=== PATIENT | female | born 1975 | race Caucasian/White ===

== ENCOUNTER → 2023-10-10 | Outpatient (CLI) | payer MEDICAID, SELFPAY ==
--- OUTSIDE RECORDS SUMMARY | 2023-10-10 22:08 | XMS RPT_ITS | CCD ---
Author Name Unknown Address [address] [facility] [address] [facility] [address] [place] [address] Organization [facility] Care Team Providers Care Energy Crop Farmer Name Role Phone SHAWNA ELIZALDE Unavailable TIMMY Pizarro Unavailable Unavailable MAZIN RANGEL Unavailable UnavailSHAZIA Sigala Unavailable Unavailable TIMMY MALIK Primary Care Physician Unavailable Primary Care Provider Unavailmiquel e Unavailable Primary Care Provider UnavailNALLELY Varner Attending Unavailable GUNJAN FISHER Attending Unavailable Unavailable Primary Care Provider Unavailmiquel e JEVON CARL Consulting Unavailable GUNJAN FISHER Attending Unavailable GUNJAN FISHER Attending Unavailable GUNJAN FISHER Attending Unavailable WILLIAM, AGA Tomlinson Consulting Unavailable YVONNE HOFFMANN Consulting Unavailable GUNJAN FISHER Attending Unavailable Medications Current Medications Medication Drug Class(es) Dates Sig (Normalized) Sig (Original) acetaminophen 325 mg / oxyCODONE hydrochloride 5 mg oral tablet (1 source) Opioid Agonist Start: 11-29-2017 take 1 tablet by mouth every six hours as needed for pain Percocet 325/5 oral tablet Dose = 1 tab(s), Oral, q6h, PRN as needed for pain, # 28 tab(s), 0 Refill(s) Start Date: 11/29/17 Status: Ordered azithromycin 250 mg oral tablet (1 source) Macrolide Antimicrobial Start: 05-18-2022 End: 05-23-2022 take 2 tablets by mouth once daily, then take 1 tablet by mouth once daily azithromycin (ZITHROMAX) 250 mg tablet Take 2 tablets by mouth once daily for 1 day, THEN 1 tablet once daily for 4 days. 6 tablet 0 05/18/2022 05/23/2022 Active Completed/Discontinued Medications Medication Drug Class(es) Dates Sig (Normalized) Sig (Original) acetaminophen 500 mg / diphenhydrAMINE hydrochloride 25 mg oral tablet (14 sources) Histamine-1 Receptor Antagonist Start: 11-26-2017 diphenhydrAMINE-A cetaminophen (TYLENOL PM EXTRA STRENGTH) 25-500 mg tab Take by mouth as needed. 0 11/26/2017 Active Problems Active Problems Problem Classification Problem Date Documented Date Episodic/Chronic Anxiety disorders (1 source) Anxiety state; Translations: [Generalized anxiety disorder] Chronic Chronic obstructive pulmonary disease and bronchiectasis (1 source) Bronchitis, not specified as acute or chronic; Translations: [Sinobronchitis] Onset: 05-18-2022 Episodic Esophageal disorders (15 sources) Gastroesophageal reflux disease; Translations: [Gastro-esophageal reflux disease without esophagitis] Onset: 01-09-2022 09-27-2021 Chronic Joint disorders and dislocations; trauma-related (16 sources) Patellofemoral syndrome of left knee; Translations: [Patellofemoral disorders, left knee] Onset: 01-04-2022 Chronic Menstrual disorders (1 source) Menorrhagia 11-26-2017 Chronic Other connective tissue disease (2 sources) Impingement syndrome of right shoulder region; Translations: [Impingement syndrome of right shoulder] Onset: 07-09-2023 07-09-2023 Episodic Other connective tissue disease (1 source) Impingement syndrome of right shoulder; Translations: [Impingement syndrome of right shoulder] Onset: 07-09-2023 Episodic Other upper respiratory disease (14 sources) Allergic rhinitis; Translations: [Allergic rhinitis, unspecified] Onset: 01-09-2022 01-09-2022 Chronic Other upper respiratory infections (2 sources) Chronic sinusitis; Translations: [Chronic sinusitis, unspecified] Onset: 05-18-2022 Chronic Spondylosis; intervertebral disc disorders; other back problems (3 sources) Degeneration of cervical intervertebral disc; Translations: [Other cervical disc degeneration, unspecified cervical region] Onset: 07-09-2023 07-09-2023 Chronic Spondylosis; intervertebral disc disorders; other back problems (1 source) Low back pain 09-27-2021 Episodic Unclassified (1 source) NO SHOW Past or Other Problems Problem Classification Problem Date Documented Da te Episodic/Chronic Sprains and strains (16 sources) Strain of flexor muscle of hip; Translations: [Strain of muscle, fascia and tendon of left hip, initial encounter] Onset: 01-04-2022 Episodic Unclassified (1 source) SORE THROAT,CONGESTIO N Onset: 02-19-2022 Results Test Name Value Interpretation Reference Range Facil ity Vital Signs Date Time Vital Sign Value Performing Clinician Haily macedo 07-09-2023 12:50-0500 Body height 157.5 cm Ugnjan Phillip DO Work Phone: [facility] 07-09-2023 12:50-0500 Body weight 51.57 kg Gunjan Phillip DO Work Phone: [facility] 07-09-2023 12:50-0500 Diastolic blood pressure 76 mm[Hg] Gunjan Phillip DO Work Phone: [facility] 07-09-2023 12:50-0500 Heart rate 89 /min Gunjan Sturgis DO Work Phone: [facility] 07-09-2023 12:50-0500 Systolic blood pressure 104 mm[Hg] Gunjan Sturgis DO Work Phone: [facility] 05-18-2022 14:38-0400 Body temperature 98.71 [degF] Nallely Mena SUPERVISOR FILTER ASSEMBLY.HEALTH RECORDS TECHNOLOGY TEACHER Work Phone: [facility] 05-18-2022 14:38-0400 Body weight 50.35 kg Nallely Mena SUPERVISOR FILTER ASSEMBLY.HEALTH RECORDS TECHNOLOGY TEACHER Work Phone: [facility] 05-18-2022 14:38-0400 Diastolic blood pressure 73 mm[Hg] Nallely Mena SUPERVISOR FILTER ASSEMBLY.HEALTH RECORDS TECHNOLOGY TEACHER Work Phone: [facility] 05-18-2022 14:38-0400 Heart rate 82 /min Nallely Mena SUPERVISOR FILTER ASSEMBLY.HEALTH RECORDS TECHNOLOGY TEACHER Work Phone: [facility] 05-18-2022 14:38-0400 Respiratory rate 16 /min Nallely Mena SUPERVISOR FILTER ASSEMBLY.HEALTH RECORDS TECHNOLOGY TEACHER Work Phone: [facility] 05-18-2022 14:38-0400 SaO2% (BldA) [Mass fraction] 97 % Nallely Mena SUPERVISOR FILTER ASSEMBLY.HEALTH RECORDS TECHNOLOGY TEACHER Work Phone: [facility] 05-18-2022 14:38-0400 Systolic blood pressure 107 mm[Hg] Nallely Mena SUPERVISOR FILTER ASSEMBLY.HEALTH RECORDS TECHNOLOGY TEACHER Work Phone: [facility] 01-04-2022 14:53-0400 Body height 157.5 cm Gunjan Fisher DO Work Phone: [facility] 01-04-2022 14:53-0400 Body temperature 98.6 [degF] Gunjan Fisher DO Work Phone: [facility] 01-04-2022 14:53-0400 Body weight 50.35 kg Gunjan Fisher DO Work Phone: [facility] 01-04-2022 14:53-0400 Diastolic blood pressure 77 mm[Hg] Gunjan Fisher DO Work Phone: [facility] 01-04-2022 14:53-0400 Heart rate 73 /min Gunjan Fisher DO Work Phone: [facility] 01-04-2022 14:53-0400 Systolic blood pressure 116 mm[Hg] Gunjan Fisher DO Work Phone: [facility] Encounters Encounter Date Encounter Type Care Provider Facility Start: 07-09-2023 End: 07-09-2023 ambulatory GUNJAN FISHER Facility:[id number] Start: 07-09-2023 End: 07-09-2023 Patient encounter procedure Gunjan Fisher DO Work Phone: [facility] Procedures Date Procedure Procedure Detail Performing Clinician Start: 07-09-2023 Arthrocentesis aspir &/inj major jt/bursa w/o us Gunjan Fisher DO Work Phone: Start: 02-19-2022 STREP SCREEN (UNION) Pr ovider [facility] Start: 02-19-2022 EXPEDITED COVID19 Provi cali [facility] Start: 06-17-2013 SURGICAL PATHOLOGY, CONVERTED Jayme Faust MD Work Phone: None (qualifier value) MARKIE DIAZ MD Plan of Treatment Date Care Activity Detail Author Start: 02-10-2024 DIABETES SCREEN DIABETES SCREEN [facility] Start: 02-10-2024 Diabetes Screening Diabetes Screenin g [facility] Start: 03-29-2023 Influenza vaccination Influenza Vacc ine (#1) [facility] Start: 01-25-2023 Hepatitis B Vaccine (2 of 2 - CpG 2-dose series) Hepatitis B Vaccine (2 of 2 - CpG 2-dose series) [facility] Start: 07-29-2022 [facility] Start: 03-29-2022 Influenza vaccination [facility] Start: 07-29-2021 DEPRESSION ASSESSMENT DEPRESSION ASS ESSMENT [facility] Start: 2020 COLOGUARD (FIT-DNA) COLOGUARD (FIT-D NA) [facility] Start: 2020 Colonoscopy COLONOSCOPY [facility] Start: 2020 COLORECTAL CANCER SCREENING COLORECTAL CANCER SCREENING [facility] Start: [address] COLONOGRAPHY [facility] Start: 2020 FECAL OCCULT BLOOD FECAL OCCULT BLOO D [facility] Start: 2020 Lipid 1996 panel - S odette or Plasma Lipid Screening [facility] Start: 2020 Lipid panel Lipid Screening [facility] Start: 2020 LIPID SCREEN LIPID SCREEN [facility] Start: 2020 Screening for malign ant neoplasm of colon [facility] Start: 2020 SIGMOIDOSCOPY SIGMOIDOSCOPY [facility] Start: 2015 Mammography [facility] Start: 2015 Screening for malign ant neoplasm of breast Mammogram Screening [facility] Start: 2005 HPV TESTING HPV TESTING [facility] Start: 2005 Screening for malign ant neoplasm of cervix HPV Testing [facility] Start: 1996 PAP TESTING PAP TESTING [facility] Start: 1996 Screening for malign ant neoplasm of cervix Pap Testing [facility] Start: 1994 Urine microalbumin profile [facility] Start: 1993 HEPATITIS C SCREENING HEPATITIS C [facility] Start: 1993 Hepatitis C screening Hepatitis C [facility] Start: 1993 HIV SCREENING HIV SCREENING [facility] Start: 1993 HIV screening HIV Screening [facility] Start: 1987 Adult depression scr eening assessment DEPRESSION SCREENING [facility] Start: 1980 COVID-19 VACCINE (#1) COVID-19 VACCI NE (#1) [facility] Start: 02-28-1976 COVID-19 VACCINE (#1) COVID-19 VACCI NE (#1) [facility] Start: 1975 HEPATITIS B (1 of 3 - 3-dose series) HEPATITIS B (1 of 3 - 3-dose series) [facility] Start: 1975 Hepatitis B Vaccine (1 of 3 - 3-dose series) Hepatitis B Vaccine (1 of 3 - [facility] series[facility] Payers Date Payer Category Payer Medicaid [id number] 2021 Medicaid [facility] MEDICAID [facility] [employer] MEDICAID [id number] 2021-Present [phone] [address] [place] [address] Medicaid [id number] 2021 Medicaid [id number] 2017 Private Health Insurance [id number] Unknown [id number] Unknown [id number] Unknown [id number] Unknown [id number] Unknown [id number] Unknown [id number] Social History Date Type Detail Facility Start: 09-27-2021 End: 05-18-2022 Never smoked tobacco (finding) [facility] unknown [facility] Start: 1975 Sex Assigned At Not on file [facility] Start: 12-10-2021 End: 05-18-2022 Exposure to SARS-CoV-2 (event) Not sure [facility] Start: 01-04-2022 End: 05-18-2022 Tobacco use and exposure Smokeless tobacco non-user [facility] Start: 01-04-2022 End: 07-09-2023 Alcohol intake Lifetime non-drinker (finding) [facility] Start: 01-04-2022 History SDOH Alcohol Frequency 1 [facility] Start: 07-07-2020 End: 05-18-2022 History of Social function [facility] Start: 07-07-2020 End: 05-18-2022 Tobacco use panel [facility] Adult Depression Screening Assessment 0 [facility] Clinical Notes 12-07-2020 to 07-09-2023 Patient InstructionsGunjan Fisher, - 07/09/2023 12:46 PM ESTTelephone Encounter - Cassy Bryant - 07/05/2023 10:45 AM ESTTelephone Encounter - Cassy Bryant - 07/05/2023 10:36 AM EST Note Date & Type Note Facility 07-09-2023 Note HNO ID: [id number] Author: Gunjan Fisher DO Service: ? Author Type: Physician Type: Progress Notes Filed: 07/09/2023 1:24 PM Note Text: HPI: Poly Martinez is a 47 year old female established patient presents for a new problem with her Right Shoulder/right side of neck. ongoing pain in her right forearm the radiates up into right shoulder and neck for the past 1 month with no known injury. She does do some lifting at her work. She notes increased pain at night with sleeping activities. Patient treating with Naprosyn AND heat. She denies any significant numbness or tingling but just notes an achiness that goes from the base of the neck top of the shoulder into the shoulder then down the arm. She says a lot of her pain is mostly when she moves her shoulder overhead past 90 degrees. Patient injury previously seen by [facility] in 06/18/2023 where xray's were obtained. 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 Pain Scales: Verbal (Numeric Rating or Visual Analog Scale) Pain Level: 7 Pain Location: Shoulder-Right Description: Throbbing Duration Amount of Time: 1 Duration Units: Months Frequency: Continuous Intervention/Comfort measure: Medication, Heat (Naprosyn and heat) Current Outpatient Medications Medication Sig Dispense Refill albuterol HFA (PROVENTIL HFA, VENTOLIN HFA) 90 mcg/actuation inhaler Inhale 2 Puffs as instructed every 6 hours as needed for wheezing/shortness of breath for up to 10 days. 1 Each 0 diphenhydrAMINE-Acetaminophen (TYLENOL PM EXTRA STRENGTH) 25-500 mg tab Take by mouth as needed. ibuprofen (MOTRIN) 600 mg tablet Take 600 mg by mouth as needed. DM/p-ephed/acetaminoph/doxylam (NYQUIL ORAL) Take by mouth. (Patient not taking: Reported on 07/09/2023) diclofenac, EC, (VOLTAREN) 75 mg EC tablet Take 75 mg by mouth as needed. (Patient not taking: Reported on 05/18/2022) predniSONE (DELTASONE) 10 mg tablet 4 tablet po day x 3 days, 3 tablets po day x 3 days, 2 tablets po day x 3 days , 1 tablet po day x 3 days (Patient not taking: Reported on 05/18/2022) 30 tablet 0 No current facility-administered medications for this visit. ALLERGIES No Known Allergies HISTORIES PAST MEDICAL HISTORY Diagnosis Date DDD (degenerative disc disease), lumbar History reviewed. No pertinent surgical history. Social History Tobacco Use Smoking status: Never Smokeless tobacco: Never Vaping Use Vaping Use: Never used Substance Use Topics Alcohol use: Never Drug use: Never FAMILY HISTORY Problem Relation Age of Onset Heart Mother Heart disease Father Kidney Disease Father Gout Father Liver Disease Father Review of Systems Constitutional: Positive for chills. HENT: Negative. Eyes: Negative. Respiratory: Negative. Cardiovascular: Negative. Gastrointestinal: Positive for nausea. Musculoskeletal: Positive for joint pain, myalgias and neck pain. Skin: Negative. Neurological: Positive for headaches. Endo/Heme/Allergies: Negative. Psychiatric/Behavioral: Negative. Exam: BP 104/76 Pulse 89 Ht 157.5 cm (5' 2 ) Wt 51.6 kg (113 lb 11.2 oz) BMI 20.80 kg/m? BMI 20.80 kg/(m2) Const: Appears well developed and well nourished. No signs of acute distress present. Facial expression appears pleasant. CV: Extremities: No clubbing, cyanosis or edema. +2 distal pulses throughout Skin: No erythema, petechiae, rash. Neuro: Alert and oriented x3. Reflexes: DTRs are 2+ bilaterally. No deficits noted. Back Exam Tenderness The patient is experiencing tenderness in the cervical (Right cervical base upper shoulder). Range of Motion Extension: 80 abnormal Flexion: normal Lateral bend right: abnormal Lateral bend left: abnormal Rotation right: normal Rotation left: normal Muscle Strength Back normal muscle strength: Upper extremity myotome strength 5-5. Other Sensation: normal Gait: normal Erythema: no back redness Scars: absent Comments: Mild Spurling's on the right negative on the left. Strength upper extremities 5 out of 5. Dermatomes intact. Tenderness in between the base of the neck and upper shoulder and anterior chest. Right Shoulder Exam Tenderness Right shoulder tenderness location: Right shoulder glenohumeral joint. Range of Motion Active abduction: 100 abnormal Passive abduction: 170 abnormal Extension: abnormal External rotation: normal Forward flexion: 110 abnormal Internal rotation 0 degrees: normal Internal rotation 90 degrees: normal Muscle Strength Abduction: 3/5 Internal rotation: 4/5 External rotation: 4/5 Supraspinatus: 3/5 Subscapularis: 4/5 Biceps: 5/5 Tests Escaimlla test: positive Impingement: positive Drop arm: negative Sulcus: absent Other Erythema: absent Scars: absent Sensation: normal Pulse: present Past x-ray cervical spine showed normal cervical spine vertebral body heights are (more content not included)... [facility] 07-09-2023 Instructions Allyson Carcamo MA - 07/09/2023 1:22 PM EST Ice right shoulder/neck 4 times a day for 20 minutes. Warm moist heat before activities for 15-20 minutes. Aleve 2 pills in the morning 2 pills at night with food/Tylenol 1 to 2 tablets 325 mg every 8 hours as needed for breakthrough pain. Cortisone injection to affected right for shoulder and neck shoulder will decrease pain and improve function. Home exercises with Range of motion 2x day / Strengthening exercises once pain free ROM. Formal physical therapy for both shoulder and neck range of motion and strengthening. Avoid repetitive overhead lifting or reaching for the next few weeks. Sleep in an inclined position to avoid laying on shoulder. Reevaluate in 4.5 weeks documented in this encounter [facility] 07-09-2023 History of Presen t illness Narrative Associated Order(s): LARGE JOINT INJECTION/ARTHROCENTESIS: R shoulder joint Post-Procedure Diagnose(s): Impingement syndrome of right shoulder HPI: Poly Martinez is a 47 year old female established patient presents for a new problem with her Right Shoulder/right side of neck. ongoing pain in her right forearm the radiates up into right shoulder and neck for the past 1 month with no known injury. She does do some lifting at her work. She notes increased pain at night with sleeping activities. Patient treating with Naprosyn & heat. She denies any significant numbness or tingling but just notes an achiness that goes from the base of the neck top of the shoulder into the shoulder then down the arm. She says a lot of her pain is mostly when she moves her shoulder overhead past 90 degrees. Patient injury previously seen by [facility] in 06/18/2023 where xray's were obtained. 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 Pain Scales: Verbal (Numeric Rating or Visual Analog Scale) Pain Level: 7 Pain Location: Shoulder-Right Description: Throbbing Duration Amount of Time: 1 Duration Units: Months Frequency: Continuous Intervention/Comfort measure: Medication, Heat (Naprosyn and heat) Current Outpatient Medications Medication Sig Dispense Refill albuterol HFA (PROVENTIL HFA, VENTOLIN HFA) 90 mcg/actuation inhaler Inhale 2 Puffs as instructed every 6 hours as needed for wheezing/shortness of breath for up to 10 days. 1 Each 0 diphenhydrAMINE-Acetaminophen (TYLENOL PM EXTRA STRENGTH) 25-500 mg tab Take by mouth as needed. ibuprofen (MOTRIN) 600 mg tablet Take 600 mg by mouth as needed. DM/p-ephed/acetaminoph/doxylam (NYQUIL ORAL) Take by mouth. (Patient not taking: Reported on 07/09/2023) diclofenac, EC, (VOLTAREN) 75 mg EC tablet Take 75 mg by mouth as needed. (Patient not taking: Reported on 05/18/2022) predniSONE (DELTASONE) 10 mg tablet 4 tablet po day x 3 days, 3 tablets po day x 3 days, 2 tablets po day x 3 days , 1 tablet po day x 3 days (Patient not taking: Reported on 05/18/2022) 30 tablet 0 No current facility-administered medications for this visit. ALLERGIES No Known Allergies HISTORIES PAST MEDICAL HISTORY Diagnosis Date DDD (degenerative disc disease), lumbar History reviewed. No pertinent surgical history. Social History Tobacco Use Smoking status: Never Smokeless tobacco: Never Vaping Use Vaping Use: Never used Substance Use Topics Alcohol use: Never Drug use: Never FAMILY HISTORY Problem Relation Age of Onset Heart Mother Heart disease Father Kidney Disease Father Gout Father Liver Disease Father Review of Systems Constitutional: Positive for chills. HENT: Negative. Eyes: Negative. Respiratory: Negative. Cardiovascular: Negative. Gastrointestinal: Positive for nausea. Musculoskeletal: Positive for joint pain, myalgias and neck pain. Skin: Negative. Neurological: Positive for headaches. Endo/Heme/Allergies: Negative. Psychiatric/Behavioral: Negative. Exam: BP 104/76 Pulse 89 Ht 157.5 cm (5' 2 ) Wt 51.6 kg (113 lb 11.2 oz) BMI 20.80 kg/m BMI 20.80 kg/(m^2) Const: Appears well developed and well nourished. No signs of acute distress present. Facial expression appears pleasant. CV: Extremities: No clubbing, cyanosis or edema. +2 distal pulses throughout Skin: No erythema, petechiae, rash. Neuro: Alert and oriented x3. Reflexes: DTRs are 2+ bilaterally. No deficits noted. Back Exam Tenderness The patient is experiencing tenderness in the cervical (Right cervical base upper shoulder). Range of Motion Extension: 80 abnormal Flexion: normal Lateral bend right: abnormal Lateral bend left: abnormal Rotation right: normal Rotation left: normal Muscle Strength Back normal muscle strength: Upper extremity myotome strength 5-5. Other Sensation: normal Gait: normal Erythema: no back redness Scars: absent Comments: Mild Spurling's on the right negative on the left. Strength upper extremities 5 out of 5. Dermatomes intact. Tenderness in between the base of the neck and upper shoulder and anterior chest. Right Shoulder Exam Tenderness Right shoulder tenderness location: Right shoulder glenohumeral joint. Range of Motion Active abduction: 100 abnormal Passive abduction: 170 abnormal Extension: abnormal External rotation: normal Forward flexion: 110 abnormal Internal rotation 0 degrees: normal Internal rotation 90 degrees: normal Muscle Strength Abduction: 3/5 Internal rotation: 4/5 External rotation: 4/5 Supraspinatus: 3/5 Subscapularis: 4/5 Biceps: 5/5 Tests Escamilla test: positive Impingement: positive Drop arm: negative Sulcus: absent Other Erythema: absent Scars: absent Sensation: normal Pulse: present Past x-ray cervical spine showed normal cervical spine vertebral body heights are maintained. Cervical alignment is maintained. Mild cervical disc disease. Right shoulder humerus x-ray 06/18/2023 [facility]: Mild arthritic changes right shoulder joint no acute fracture or osseous abnormality. Mild arthritic changes to the lateral view of the elbow. Otherwise normal humerus. ASSESSMENT/PLAN: 1. Impingement syndrome of right shoulder - ICD9: 726.2, ICD10: M75.41 (primary diagnosis) LARGE JOINT INJECTION/ARTHROCENTESIS: R shoulder joint Informed Consent Consent Obtained: Verbal [place] Protocol A moment to CARE was completed. SIGN IN Personnel directly involved with the procedure wore the appropriate PPE. Special Equipment: N/A Patient/Surrogate Stated/Verified: Patient name, Date of , Relevant allergies and Intended procedure TIME OUT Intended patient and procedure match the source document(s). Consent documented and matches the intended procedure. Relevant labs, photos, and/or imaging studies have been reviewed. Correct side/site marked and visible. Medications required for procedure verified. No fire risk assessment and interventions applicable. No implant(s) inserted. 07/09/2023 1:11 PM The procedure site was prepped in the usual sterile fashion. Site: R shoulder joint Medications: 40 mg triamcinolone acetonide 40 mg/mL; 2 mg dexAMETHasone sodium phosphate 4 mg/mL Anesthetics: 2 mL lidocaine (PF) 20 mg/mL (2 %) Outcome: Tolerated well, no immediate complications Post-injection instructions were reviewed with the patient and the patient voiced understanding of these instructions. SIGN OUT No instruments, equipment or retained foreign bodies applicable. Ice right shoulder/neck 4 times a day for 20 minutes. Warm moist heat before activities for 15-20 minutes. Aleve 2 pills in the morning 2 pills at night with food/Tylenol 1 to 2 tablets 325 mg every 8 hours as needed for breakthrough pain. Cortisone injection to affected right for shoulder and neck shoulder will decrease pain and improve function. Home exercises with Range of motion 2x day / Strengthening exercises once pain free ROM. Formal physical therapy for both shoulder and neck range of motion and strengthening. Avoid repetitive overhead lifting or reaching for the next few weeks. Sleep in an inclined position to avoid laying on shoulder. Reevaluate in 4.5 weeks 2. DDD (degenerative disc disease), cervical - ICD9: 722.4, ICD10: M50.30 As above Gunjan Fisher DO The information in this document was created by the medical office assistant instructor. Edward Fisher have reviewed and approved this document for accuracy. Note: This dictation was created with the assistance of voice recognition software. Phonetic and/or minor grammatical errors may exist. documented in this encounter [facility] 07-05-2023 Miscellaneous Notes Formattin g of this note might be different from the original. SCHEDULED 07/09/2023 Cassy Bryant REPORT PUT ON DR FISHER DESK Ailin 06/18 or Right Shoulder,no injury,yxray Waiting on report to be faxed. Cassy Bryant documented in this encounter [facility] 06-04-2022 Miscellaneous Notes Formattin g of this note might be different from the original. Patient called back and I let her know we received a referral from PCP. Patient stated that she is planning on seeing a doctor up in [place] and did not wish to make an appointment with us. Marquita Easton MA We have received a referral from patients family doctor, i tried to call to schedule an appointment but i had to leave a message for patient to return our call. Will send letter. documented in this encounter [facility] 05-18-2022 Note HNO ID: [id number] Author: Nallely Mena APRN.HE[employer] RECORDS TECHNOLOGY TEACHER Service: ? Author Type: Nurse Practitioner Type: Progress Notes Filed: 05/18/2022 3:43 PM Note Text: Poly Martinez is a 46 year old female who presents with Cough (2 weeks), Chest Congestion, and Muscle Aches Patient presents for productive cough, congestion, body aches, sinus pressure x2 weeks. States her symptoms have not resolved and has been trying zvwp-nlw-bfqkwwb medications. Denies shortness of breath or fever. History reviewed. No pertinent past medical history. ACTIVE PROBLEM LIST Patellofemoral Pain Syndrome of Left Knee Hip Strain, Left, Initial Encounter Allergic Rhinitis Gastroesophageal Reflux Disease Current Outpatient Medications Medication Sig Dispense Refill DM/p-ephed/acetaminoph/doxylam (NYQUIL ORAL) Take by mouth. diphenhydrAMINE-Acetaminophen (TYLENOL PM EXTRA STRENGTH) 25-500 mg tab Take by mouth as needed. ibuprofen (MOTRIN) 600 mg tablet Take 600 mg by mouth as needed. azithromycin (ZITHROMAX) 250 mg tablet Take 2 tablets by mouth once daily for 1 day, THEN 1 tablet once daily for 4 days. 6 tablet 0 albuterol HFA (PROVENTIL HFA, VENTOLIN HFA) 90 mcg/actuation inhaler Inhale 2 Puffs as instructed every 6 hours as needed for wheezing/shortness of breath for up to 10 days. 1 Each 0 diclofenac, EC, (VOLTAREN) 75 mg EC tablet Take 75 mg by mouth as needed. (Patient not taking: Reported on 05/18/2022) predniSONE (DELTASONE) 10 mg tablet 4 tablet po day x 3 days, 3 tablets po day x 3 days, 2 tablets po day x 3 days , 1 tablet po day x 3 days (Patient not taking: Reported on 05/18/2022) 30 tablet 0 No current facility-administered medications for this visit. Social History Tobacco Use Smoking status: Never Smokeless tobacco: Never Vaping Use Vaping Use: Never used Substance Use Topics Alcohol use: Never Drug use: Never Alcohol Use: Never Tobacco Use: Never FAMILY HISTORY Problem Relation Age of Onset Heart Mother Heart disease Father Kidney Disease Father Gout Father Liver Disease Father Review of Systems HENT: Positive for congestion. Respiratory: Positive for cough and sputum production. BP 107/73 Pulse 82 Temp 98.7 Resp 16 Wt 111 lb (50.3kg) SpO2 97% Physical Exam Vitals and nursing note reviewed. Constitutional: General: She is not in acute distress. Appearance: Normal appearance. She is not ill-appearing, toxic-appearing or diaphoretic. HENT: Right Ear: Tympanic membrane normal. Left Ear: Tympanic membrane normal. Nose: Congestion present. Right Turbinates: Swollen. Left Turbinates: Swollen. Right Sinus: Frontal sinus tenderness present. Left Sinus: Frontal sinus tenderness present. Mouth/Throat: Lips: [employer]. Mouth: Mucous membranes are moist. Eyes: Extraocular Movements: Extraocular movements intact. Pupils: Pupils are equal, round, and reactive to light. Cardiovascular: Rate and Rhythm: Normal rate and regular rhythm. Pulses: Normal pulses. Heart sounds: Normal heart sounds. Pulmonary: Effort: Pulmonary effort is normal. Breath sounds: Normal breath sounds. Abdominal: General: Abdomen is flat. Bowel sounds are normal. Palpations: Abdomen is soft. Musculoskeletal: Cervical back: Normal range of motion and neck supple. Skin: General: Skin is warm and dry. Capillary Refill: Capillary refill takes less than 2 seconds. Neurological: General: No focal deficit present. Mental Status: She is alert and oriented to person, place, and time. ASSESSMENT/PLAN: 1. Sinobronchitis - ICD9: 473.9, 490, ICD10: J32.9, J40 - Will begin treatment with Zithromax pack as directed - Supportive care with plenty of fluids, rest, and analgesia prn. - Follow up in 3-5 days if symptoms persist or worsen. -Albuterol inhaler sent to pharmacy. Follow-up with primary care provider as needed. [facility] 05-18-2022 History of Presen t illness Narrative Poly Martinez is a 46 year old female who presents with Cough (2 weeks), Chest Congestion, and Muscle Aches Patient presents for productive cough, congestion, body aches, sinus pressure x2 weeks. States her symptoms have not resolved and has been trying mizn-mcg-ahdlzhw medications. Denies shortness of breath or fever. History reviewed. No pertinent past medical history. ACTIVE PROBLEM LIST Patellofemoral Pain Syndrome of Left Knee Hip Strain, Left, Initial Encounter Allergic Rhinitis Gastroesophageal Reflux Disease Current Outpatient Medications Medication Sig Dispense Refill DM/p-ephed/acetaminoph/doxylam (NYQUIL ORAL) Take by mouth. diphenhydrAMINE-Acetaminophen (TYLENOL PM EXTRA STRENGTH) 25-500 mg tab Take by mouth as needed. ibuprofen (MOTRIN) 600 mg tablet Take 600 mg by mouth as needed. azithromycin (ZITHROMAX) 250 mg tablet Take 2 tablets by mouth once daily for 1 day, THEN 1 tablet once daily for 4 days. 6 tablet 0 albuterol HFA (PROVENTIL HFA, VENTOLIN HFA) 90 mcg/actuation inhaler Inhale 2 Puffs as instructed every 6 hours as needed for wheezing/shortness of breath for up to 10 days. 1 Each 0 diclofenac, EC, (VOLTAREN) 75 mg EC tablet Take 75 mg by mouth as needed. (Patient not taking: Reported on 05/18/2022) predniSONE (DELTASONE) 10 mg tablet 4 tablet po day x 3 days, 3 tablets po day x 3 days, 2 tablets po day x 3 days , 1 tablet po day x 3 days (Patient not taking: Reported on 05/18/2022) 30 tablet 0 No current facility-administered medications for this visit. Social History Tobacco Use Smoking status: Never Smokeless tobacco: Never Vaping Use Vaping Use: Never used Substance Use Topics Alcohol use: Never Drug use: Never Alcohol Use: Never Tobacco Use: Never FAMILY HISTORY Problem Relation Age of Onset Heart Mother Heart disease Father Kidney Disease Father Gout Father Liver Disease Father Review of Systems HENT: Positive for congestion. Respiratory: Positive for cough and sputum production. BP 107/73 Pulse 82 Temp 98.7 Resp 16 Wt 111 lb (50.3kg) SpO2 97% Physical Exam Vitals and nursing note reviewed. Constitutional: General: She is not in acute distress. Appearance: Normal appearance. She is not ill-appearing, toxic-appearing or diaphoretic. HENT: Right Ear: Tympanic membrane normal. Left Ear: Tympanic membrane normal. Nose: Congestion present. Right Turbinates: Swollen. Left Turbinates: Swollen. Right Sinus: Frontal sinus tenderness present. Left Sinus: Frontal sinus tenderness present. Mouth/Throat: Lips: [employer]. Mouth: Mucous membranes are moist. Eyes: Extraocular Movements: Extraocular movements intact. Pupils: Pupils are equal, round, and reactive to light. Cardiovascular: Rate and Rhythm: Normal rate and regular rhythm. Pulses: Normal pulses. Heart sounds: Normal heart sounds. Pulmonary: Effort: Pulmonary effort is normal. Breath sounds: Normal breath sounds. Abdominal: General: Abdomen is flat. Bowel sounds are normal. Palpations: Abdomen is soft. Musculoskeletal: Cervical back: Normal range of motion and neck supple. Skin: General: Skin is warm and dry. Capillary Refill: Capillary refill takes less than 2 seconds. Neurological: General: No focal deficit present. Mental Status: She is alert and oriented to person, place, and time. ASSESSMENT/PLAN: 1. Sinobronchitis - ICD9: 473.9, 490, ICD10: J32.9, J40 - Will begin treatment with Zithromax pack as directed - Supportive care with plenty of fluids, rest, and analgesia prn. - Follow up in 3-5 days if symptoms persist or worsen. -Albuterol inhaler sent to pharmacy. Follow-up with primary care provider as needed. Nallely Mena documented in this encounter [facility] 05-18-2022 Instructions Nallely Mena APRN.HEALTH RECORDS TECHNOLOGY TEACHER - 05/18/2022 2:50 PM EDT ACUTE BRONCHITIS: You have acute bronchitis. This means the airway passages in your lungs are inflamed. Bronchitis may be caused by viruses or bacteria. Inhaling cigarette smoke will always make it worse. Exposure to irritating chemicals or second hand smoke as well as allergies can contribute to bronchitis. Repeat episodes of bronchitis may cause lifelong lung problems. Acute bronchitis is usually treated with rest, fluids, cough medicine, and possibly antibiotics or inhaled medicine to open up the small airways. It is very important that you avoid smoke and drink increased amounts of fluids. A cool air vaporizer can help thin bronchial secretions. This makes it easier to cough and clear your chest. If you are a cigarette smoker, consider using nicotine gum or skin patches to help you withdraw. Recovery from bronchitis is often slow, but you should start feeling better after 2-3 days of treatment. Please call your doctor or return here if you have any of the following symptoms: Increased fever, chills, or chest pain. Severe shortness of breath or bloody sputum. Do not improve after 3 days of proper treatment.g. Increasing pain, severe headache, or toothache. Nausea, vomiting, or unusual drowsiness. documented in this encounter [facility] 02-15-2022 Miscellaneous Notes [facility] [id number] PHYSICAL THERAPY REPORT Patient: POLY MARTINEZ JAMES D D.O. [id number] [age] F Status: REG RCR PT Outpatient Physical Therapy Discharge Summary DATE OF VISIT: 02/15/2022 THERAPIST: Kaitlin Do DPT PHYSICIAN: Gunjan Fisher DO Dear Dr. Fisher, As you know, you referred your patient to the [facility] secondary to low back and left lower extremity pain. The patient completed her initial evaluation and then did not show for any subsequent appointments. The patient will be discharged at this time. Thank you again for the referral of your patient. If you have any further questions, please do not hesitate to contact me here at the [facility]. Report#: Dict ID [id number] / Int ID [id number] cc: Gunjan Fisher DO Dictated By: KAITLIN DO DPT <Electronically signed by KAITLIN DO DPT> 02/16/22 1321 KAITLIN DO DPT CC: GUNJAN FISHER D.O. << Signature on File>> Reported By: KAITLIN DO DPT Signed By: KAITLIN DO DPT Tests performed at: [address] [address] documented in this encounter [facility] 01-18-2022 Miscellaneous Notes Sent first no show letter Left message on machine about missed appointment. Cassy Bryant documented in this encounter [facility] 01-15-2022 History and physi janel note VISIT TYPE: NEW PATIENT APPOINTMENT CHIEF COMPLAINT: No chief complaint on file. HPI: Poly Martinez is a 46 year old female here for new patient appointment. Pt in for c/o left hip and low back pain. Had been to see Dr. Fisher 01/04 for the hip pain. Was started on prednisone taper and enc to use ice and take nsaids. Had been to [place] ER in September for low back pain with radicular symptoms and was referred to Dr. Diaz, who she has already seen. Was recommended by Dr. Fisher to f/u with Dr. Diaz for her low back pain. Did have CT done at [place]. GERD REVIEW OF SYSTEMS: Review of Systems Constitutional: Negative for appetite change, chills and fever. HENT: Negative for congestion, ear pain, rhinorrhea and sore throat. Eyes: Negative for pain, discharge and redness. Respiratory: Negative for cough, chest tightness, shortness of breath and wheezing. Cardiovascular: Negative for chest pain, palpitations and leg swelling. Gastrointestinal: Negative for abdominal pain, constipation, diarrhea, nausea and vomiting. Endocrine: Negative for polydipsia, polyphagia and polyuria. Musculoskeletal: Positive for back pain. Negative for gait problem. Skin: Negative for pallor, rash and wound. Neurological: Negative for dizziness, weakness and headaches. Psychiatric/Behavioral: The patient is not nervous/anxious. Current Outpatient Medications Medication Sig Dispense Refill diphenhydrAMINE-Acetaminophen (TYLENOL PM EXTRA STRENGTH) 25-500 mg tab Take by mouth as needed. diclofenac, EC, (VOLTAREN) 75 mg EC tablet Take 75 mg by mouth as needed. ibuprofen (MOTRIN) 600 mg tablet Take 600 mg by mouth as needed. predniSONE (DELTASONE) 10 mg tablet 4 tablet po day x 3 days, 3 tablets po day x 3 days, 2 tablets po day x 3 days , 1 tablet po day x 3 days 30 tablet 0 No current facility-administered medications for this visit. ALLERGIES No Known Allergies No past medical history on file. No past surgical history on file. FAMILY HISTORY Problem Relation Age of Onset Heart Mother Heart disease Father Kidney Disease Father Gout Father Liver Disease Father Social History Tobacco Use Smoking status: Never Smoker Smokeless tobacco: Never Used Substance Use Topics Alcohol use: Never Drug use: Never Employer And Job Title: None on file Years Of Education Completed: Not specified Marital Status: Social History Social History Narrative Not on file PHYSICAL EXAM There were no vitals taken for this visit. Physical Exam Constitutional: Appearance: Normal appearance. HENT: Head: Normocephalic and atraumatic. Right Ear: Tympanic membrane and external ear normal. There is no impacted cerumen. Left Ear: Tympanic membrane and external ear normal. There is no impacted cerumen. Nose: Nose normal. Mouth/Throat: Mouth: Mucous membranes are moist. Pharynx: No oropharyngeal exudate or posterior oropharyngeal erythema. Eyes: Extraocular Movements: Extraocular movements intact. Conjunctiva/sclera: Conjunctivae normal. Pupils: Pupils are equal, round, and reactive to light. Cardiovascular: Rate and Rhythm: Normal rate and regular rhythm. Pulses: Normal pulses. Heart sounds: Normal heart sounds. No murmur heard. Pulmonary: Effort: Pulmonary effort is normal. Breath sounds: Normal breath sounds. No wheezing, rhonchi or rales. Abdominal: General: Bowel sounds are normal. Tenderness: There is no abdominal tenderness. Musculoskeletal: General: No swelling or tenderness. Cervical back: Normal range of motion. Skin: General: Skin is warm and dry. Findings: No bruising, erythema or rash. Neurological: General: No focal deficit present. Mental Status: She is alert and oriented to person, place, and time. Psychiatric: Mood and Affect: Mood normal. Thought Content: Thought content normal. DIAGNOSTICS REVIEWED @RESULTRCNT[7M]@ IMPRESSION / PLAN Tammy Grimes APRN.HEALTH RECORDS TECHNOLOGY TEACHER No follow-ups on file. documented in this encounter [facility] 01-15-2022 Nurse Note Summary: rash PT C/O RASH documented in this encounter [facility] 01-10-2022 Miscellaneous Notes [place] [id number] PHYSICAL THERAPY REPORT Patient: POLY MARTINEZ JAMES D D.O. [id number] [age] F Status: REG RCR PT Outpatient Physical Therapy Initial Evaluation DATE OF VISIT: 01/10/2022 PHYSICIAN: Gunjan Fisher DO. PHYSICAL THERAPY DIAGNOSES: 1. Lumbar stiffness. 2. Muscle weakness. 3. Lumbar pain. MEDICAL DIAGNOSES: 1. Hip strain, left, S76.012A. 2. Patellofemoral pain syndrome of left knee, M22.2X2. CHIEF COMPLAINT: 1. Low back and left leg pain. 2. Limited work abilities due to pain. HISTORY: The patient reports an insidious onset of acute on chronic low back and left lower extremity pain that started approximately 2 months ago when she began a new job. 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 She reported climbing ladders and lifting and carrying heavy boxes. She has since quit this job. She notes her pain persists , however. The patient saw her spinal physician and had 2 emergency room visits where x- rays were negative to her knee and hip. However, a CAT scan of her low back revealed degenerative disk disease. The patient states that Dr. Diaz wanted her to complete physical therapy and if it did not help that she would likely have an MRI performed. The patient was also referred to Dr. Fisher who then also referred her to physical therapy. The patient notes her pain is worse in the morning and with activity. She states the pain does keep her awake at night. The patient does use a heating pad and takes Tylenol. She has no home exercise program. She notes that she had her second child when she was 40 years old and he was a large baby and that she seems to have had some type of issues ever since. PERSONAL FACTORS AND COMORBIDITIES: The patient will be starting a new job in a new retail store and this may impact her performance and ability to attend therapy sessions. EXAMINATION: Standing trunk flexion: 25 cm from the floor. Standing trunk side bending is 10 cm from the knee on the right and 12 cm from the knee on the left. Standing trunk rotation is 20 degrees bilaterally limited by pain. GAIT: The patient ambulates with significantly decreased gait velocity with a very guarded posture with decreased trunk rotation and very hesitant movements. The patient is fearful of pain while moving. Slump sign was positive bilaterally. Modified Oswestry Disability Questionnaire: 37. Strength is 4 to 4+/5 grossly. PALPATION: Very tender to light touch. FUNCTIONAL MOBILITY: The patient moves with again a very guarded and protected posture throughout all functional mobility due to pain. Upon completion of exam, the patient was issued a home exercise program. She was also oriented to the aquatic therapy program here at the [facility]. CLINICAL PRESENTATION: The patient displays an evolving clinical presentation with changing characteristics. CLINICAL DECISION MAKING: Moderate complexity based upon the above history and examination. PROBLEM LIST: 1. Low back and bilateral lower extremity pain. 2. Impaired trunk range of motion. 3. Impaired strength. 4. Dependence with home exercise program. GOALS: 1. The patient will report her pain decreased to 1/10 in 8 visits. 2. The patient will perform standing trunk flexion to less than or equal to 10 cm from the floor with no pain in 8 visits. 3. The patient will score less than 20 on the Modified Oswestry Disability Questionnaire in 8 visits. 4. The patient will be independent and compliant with home exercise program in 8 visits. PATIENT STATED GOALS: To get rid of pain. PROGNOSIS: Good to achieve therapy goals. TREATMENT PLAN: Aquatic therapy and land-based therapy if needed for lumbar stretching, core strengthening, and dynamic lumbar stabilization with bilateral lower extremity strengthening, patient education, and home exercise program instruction. FREQUENCY AND DURATION: 2 times per week for 8 to 16 visits. DISCHARGE PLAN: The patient will be discharged upon completion of her physical therapy goals or plateau on her physical therapy progress. Thank you again for the referral of your patient. If you have any further questions, please do not hesitate to contact me here at the [facility]. Report#: Dict ID [id number] / Int ID [id number] cc: Gunjan Fisher DO Dictated By: KAITLIN DO DPT <Electronically signed by KAITLIN DO DPT> 01/12/22 0751 KAITLIN DO DPT CC: GUNJAN FISHER D.O. << Signature on File>> Reported By: KAITLIN DO DPT Signed By: KAITLIN DO DPT Tests performed at: [address] [address] documented in this encounter [facility] documented as of this encounter (statuses as of 01/09/2022) [facility] History of Past illness Narrative* Problem Noted Date Resolved Date Anxiety state 01/09/2022 01/09/2022 documented as of this encounter (statuses as of 01/11/2022) [facility] History of Past illness Narrative* Problem Noted Date Resolved Date Anxiety state 01/09/2022 01/09/2022 documented as of this encounter (statuses as of 01/13/2022) [facility] History of Past illness Narrative* Problem Noted Date Resolved Date Anxiety state 01/09/2022 01/09/2022 documented as of this encounter (statuses as of 01/18/2022) [facility] History of Past illness Narrative* Problem Noted Date Resolved Date Anxiety state 01/09/2022 01/09/2022 documented as of this encounter (statuses as of 01/22/2022) [facility] History of Past illness Narrative* Problem Noted Date Resolved Date Anxiety state 01/09/2022 01/09/2022 documented as of this encounter (statuses as of 02/17/2022) [facility] History of Past illness Narrative* Problem Noted Date Resolved Date Anxiety state 01/09/2022 01/09/2022 documented as of this encounter (statuses as of 02/19/2022) [facility] History of Past illness Narrative* Problem Noted Date Resolved Date Anxiety state 01/09/2022 01/09/2022 documented as of this encounter (statuses as of 02/27/2022) [address]14-2022 History of Past illness Narrative* Problem Noted Date Resolved Date Anxiety state 01/09/2022 01/09/2022 documented as of this encounter (statuses as of 05/18/2022) [facility] History of Past illness Narrative* Problem Noted Date Resolved Date Anxiety state 01/09/2022 01/09/2022 documented as of this encounter (statuses as of 06/04/2022) [facility] History of Past illness Narrative* Problem Noted Date Resolved Date Anxiety state 01/09/2022 01/09/2022 documented as of this encounter (statuses as of 10/10/2022) [facility] History of Past illness Narrative* Problem Noted Date Diagnosed Date Resolved Date Anxiety state 01/09/2022 01/09/2022 documented as of this encounter (statuses as of 04/19/2023) [facility] History of Past illness Narrative* Problem Noted Date Diagnosed Date Resolved Date Anxiety state 01/09/2022 01/09/2022 documented as of this encounter (statuses as of 07/05/2023) [facility] History of Past illness Narrative* Problem Noted Date Diagnosed Date Resolved Date Anxiety state 01/09/2022 01/09/2022 documented as of this encounter (statuses as of 07/10/2023) [facility]2022 NoteHNO ID: [id number] Author: Gunjan Fsiher, DO Service: ? Author Type: Physician Type: Progress Notes Filed: 01/04/2022 3:31 PM Note Text: HPI: Poly Martinez is a 46 year old female new patient who presents for a new problem with her Left hip/anterior knee. She has been having ongoing pain in the left hip radiating to left knee for the past 1 month with no known injury. 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 She started having left hip pain with limping and now has radiated to her left anterior knee. Her pain is elevated with prolonged sitting and weight bearing. Her pain is radiating up into the left groin and back. She has had back issues in the past that she sees chiropractor for. She has been applying heat to the left knee and is taking Ibuprofen/Tylenol as needed for any pain. She denies any prior injury or surgery to the left knee. She was seen at [facility] Emergency Department where xray's were obtained. X-rays of the left knee and left hip and pelvis were normal. Patient did see Dr. Markie Diaz neurosurgeon [facility] in September due to left lower back pain with radiculopathy to the left hip and leg. Other records are not in for evaluation. Apparently she had a CT scan of the lumbar spine at [place]. Pain Scales: Verbal (Numeric Rating or Visual Analog Scale) Pain Level: 10 Pain Location: Knee-Left Description: Aching, Sharp, Throbbing Duration Amount of Time: 1 Duration Units: Months Frequency: Continuous Intervention/Comfort measure: Medication, Heat (Ibuprofen, Tylenol and heat) Current Outpatient Medications Medication Sig Dispense Refill - diphenhydrAMINE-Acetaminophen (TYLENOL PM EXTRA STRENGTH) 25-500 mg tab Take by mouth as needed. - diclofenac, EC, (VOLTAREN) 75 mg EC tablet Take 75 mg by mouth as needed. - ibuprofen (MOTRIN) 600 mg tablet Take 600 mg by mouth as needed. No current facility-administered medications for this visit. ALLERGIES No Known Allergies HISTORIES History reviewed. No pertinent past medical history. History reviewed. No pertinent surgical history. Social History Tobacco Use - Smoking status: Never Smoker - Smokeless tobacco: Never Used Substance Use Topics - Alcohol use: Never - Drug use: Never FAMILY HISTORY Problem Relation Age of Onset - Heart Mother - Heart disease Father - Kidney Disease Father - Gout Father - Liver Disease Father Review of Systems Constitutional: Positive for malaise/fatigue. HENT: Negative. Eyes: Negative. Respiratory: Negative. Cardiovascular: Positive for chest pain. Gastrointestinal: Positive for nausea. Genitourinary: Negative. Musculoskeletal: Positive for joint pain. Skin: Negative. Neurological: Positive for dizziness and weakness. Endo/Heme/Allergies: Negative. Psychiatric/Behavioral: Negative. Exam: BP 116/77 Pulse 73 Ht 157.5 cm (5' 2 ) Wt 50.3 kg (111 lb) BMI 20.30 kg/m? BMI 20.30 kg/(m2) Const: Appears well developed and well nourished. No signs of acute distress present. Facial expression appears pleasant. CV: Extremities: No clubbing, cyanosis or edema. +2 distal pulses throughout Skin: No erythema, petechiae, rash. Neuro: Alert and oriented x3. Reflexes: DTRs are 2+ bilaterally. No deficits noted. Left Knee Exam Tenderness The patient is experiencing tenderness in the patella. Range of Motion Extension: normal Flexion: normal Tests Fermín: Medial - negative Lateral - negative Varus: negative Valgus: negative Femi: Anterior - negative Drawer: Anterior - negative Posterior - negative Patellar apprehension: positive Other Erythema: absent Scars: absent Sensation: normal Pulse: present Swelling: none Effusion: no effusion present Left Hip Exam Tenderness The patient is experiencing tenderness in the anterior and lateral. Range of Motion Abduction: normal Adduction: normal Extension: normal Flexion: 120 abnormal External rotation: normal Internal rotation: normal Muscle Strength Abduction: 4/5 Adduction: 4/5 Flexion: 4/5 Tests MADDY: positive Vandana: negative Other Erythema: absent Scars: absent Sensation: normal Pulse: present Comments: Left hip logroll test is normal with normal movement does not elicit pain. Positive discomfort around the lateral hip with FADIR test. Positive antalgic gait protecting the hip. Straight leg raise test bilateral tightness to hamstrings but no radicular signs. Mild tightness to the lower back. Left hip pelvis 3 views x-ray 01/02/2022: No acute fracture. The bones are in anatomic alignment. The joint spaces are maintained.There is no radiopaque foreign body. Left knee x-ray 4 views from hospital 01/02/2022 showed no acute fra (more content not included)...[facility] [id number] Instructions* Patient Instructions* Allyson Carcamo MA - 01/04/2022 3:25 PM EDT Ice or warm moist heat left hip left knee 3-4 times a day for 20 minutes placing a towel between the skin and ice. Prednisone taper 40, 30, 20, 10 mg over 12 days. Take this medication with food. Once that is completed ibuprofen 2 to 3 tablets every 8 hours. Tylenol 1 to 2 tablets can be taken as directed for breakthrough pain with the prednisone. Home exercise program for left hip lower back andleft knee range of motion exercises. Formal physical therapy to work on core stability left hip strain. Would like to reevaluate patient in 2 weeks to see how she is feeling. If no improvement further imaging may be needed. [facility] History of Present illness Narrative* Gunjan Fisher DO - 01/04/2022 2:44 PM EDT HPI: Ploy Martinez is a 46 year old female new patient who presents for a new problem with her Left hip/anterior knee. She has been having ongoing pain in the left hip radiating to left knee for the past 1 month with no known injury. 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 She started having left hip pain with limping and now has radiated to her left anterior knee. Her pain is elevated with prolonged sitting and weight bearing. Her pain is radiating up into the left groin and back. She has h ad back issues in the past that she sees chiropractor for. She has been applying heat to the left knee and is taking Ibuprofen/Tylenol as needed for any pain. She denies any prior injury or surgery to the left knee. She was seen at [facility] Emergency Department where xray's were obtained. X-rays of the left knee and left hip and pelvis were normal. Patient did see Dr. Markie Diaz neurosurgeon [facility] in September due to left lower back pain with radiculopathy to the left hip and leg. Other records are not in for evaluation. Apparently she had a CT scan of the lumbar spine at [place]. Pain Scales: Verbal (Numeric Rating or Visual Analog Scale) Pain Level: 10 Pain Location: Knee-Left Description: Aching, Sharp, Throbbing Duration Amount of Time: 1 Duration Units: Months Frequency: Continuous Intervention/Comfort measure: Medication, Heat (Ibuprofen, Tylenol and heat) Current Outpatient Medications Medication Sig Dispense Refill diphenhydrAMINE-Acetaminophen (TYLENOL PM EXTRA STRENGTH) 25-500 mg tab Take by mouth as needed. diclofenac, EC, (VOLTAREN) 75 mg EC tablet Take 75 mg by mouth as needed. ibuprofen (MOTRIN) 600 mg tablet Take 600 mg by mouth as needed. No current facility-administered medications for this visit. ALLERGIES No Known Allergies HISTORIES History reviewed. No pertinent past medical history. History reviewed. No pertinent surgical history. Social History Tobacco Use Smoking status: Never Smoker Smokeless tobacco: Never Used Substance Use Topics Alcohol use: Never Drug use: Never FAMILY HISTORY Problem Relation Age of Onset Heart Mother Heart disease Father Kidney Disease Father Gout Father Liver Disease Father Review of Systems Constitutional: Positive for malaise/fatigue. HENT: Negative. Eyes: Negative. Respiratory: Negative. Cardiovascular: Positive for chest pain. Gastrointestinal: Positive for nausea. Genitourinary: Negative. Musculoskeletal: Positive for joint pain. Skin: Negative. Neurological: Positive for dizziness and weakness. Endo/Heme/Allergies: Negative. Psychiatric/Behavioral: Negative. Exam: BP 116/77 Pulse 73 Ht 157.5 cm (5' 2 ) Wt 50.3 kg (111 lb) BMI 20.30 kg/m BMI 20.30 kg/(m^2) Const: Appears well developed and well nourished. No signs of acute distress present. Facial expression appears pleasant. CV: Extremities: No clubbing, cyanosis or edema. +2 distal pulses throughout Skin: No erythema, petechiae, rash. Neuro: Alert and oriented x3. Reflexes: DTRs are 2+ bilaterally. No deficits noted. Left Knee Exam Tenderness The patient is experiencing tenderness in the patella. Range of Motion Extension: normal Flexion: normal Tests Fermín: Medial - negative Lateral - negative Varus: negative Valgus: negative Femi: Anterior - negative Drawer: Anterior - negative Posterior - negative Patellar apprehension: positive Other Erythema: absent Scars: absent Sensation: normal Pulse: present Swelling: none Effusion: no effusion present Left Hip Exam Tenderness The patient is experiencing tenderness in the anterior and lateral. Range of Motion Abduction: normal Adduction: normal Extension: normal Flexion: 120 abnormal External rotation: normal Internal rotation: normal Muscle Strength Abduction: 4/5 Adduction: 4/5 Flexion: 4/5 Tests MADDY: positive Vandana: negative Other Erythema: absent Scars: absent Sensation: normal Pulse: present Comments: Left hip logroll test is normal with normal movement does not elicit pain. Positive discomfort around the lateral hip with FADIR test. Positive antalgic gait protecting the hip. Straight leg raise test bilateral tightness to hamstrings but no radicular signs. Mild tightness to the lower back. Left hip pelvis 3 views x-ray 01/02/2022: No acute fracture. The bones are in anatomic alignment. Thejoint spaces are maintained.There is no radiopaque foreign body. Left knee x-ray 4 views from hospital 01/02/2022 showed no acute fracture no major osseous abnormalities or significant arthritis. These were reviewed by myself today and agree ASSESSMENT/PLAN: 1. Hip strain, left, initial encounter - ICD9: 843.9, ICD10: S76.012A (primary diagnosis) Ice or warm moist heat left hip left knee 3-4 times a day for 20 minutes placing a towel between the skin and ice. Prednisone taper 40, 30, 20, 10 mg over 12 days. Take this medication with food. Once that is completed ibuprofen 2 to 3 tablets every 8 hours. Tylenol 1 to 2 tablets can be taken as directed for breakthrough pain with the prednisone. Home exercise program for left hip lower back andleft knee range of motion exercises. Formal physical therapy to work on core stability left hip strain. Would like to reevaluate patient in 2 weeks to see how she is feeling. If no improvement further imaging may be needed. Due to the history of the recent left lower back pain and left leg issues taken care of with Dr. Markie Diaz would recommend the patient's contact Dr. Diaz's office back for reevaluation of her lower back. Patient is able to work but no climbing ladders heavy lifting sudden turns or twists. 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 - PREDNISONE 10 MG TABLET 2. Patellofemoral pain syndrome of left knee - ICD9: 719.46, ICD10: M22.2X2 - PREDNISONE 10 MG TABLET Gunjan Fisher DO Medical Decision Making: Problems: Moderate: Acute complicated injury Data: Unique source(s) for external note(s) reviewed: 1 Unique test result(s) reviewed: 2 Risk: Low: Low risk from testing/treatment Moderate: Drug management Medical Decision Making Level: 4 - Moderate the information in this document was created by the medical office assistant instructor. Edward Fisher have reviewed and approved this document for accuracy. Note: This dictation was created with the assistance of voice recognition software. Phonetic and/orminor grammatical errors may exist. [facility] History of Present illness Narrative* Darius Soliman PA-C - 12/07/2020 1:18 PM EDT DATE OF SERVICE: 12/05/2020 HISTORY OF PRESENT ILLNESS: A 45-year-old female with back pain to her low back with pain radiating down her left leg. She has a 5-year-old at home that weighs 55 pounds that she is lifting and carrying. No bowel or bladder complaints. No saddle anesthesia. She has had a previous problem with degenerative changes in her cervical spine but nothing in her lumbar. ALLERGIES, MEDICATIONS, MEDICAL AND SURGICAL HISTORY: Per nursing assessment sheet. PHYSICAL EXAMINATION: Vital Signs: Stable. Pain to palpate low back, lumbosacral, primarily left-sided. She has a fair amount of spasm throughout the thoracic spine and the paravertebral musculature also. Ambulatory. No foot drop. No focal deficits or weaknesses. No midline step-off or deformity. Chest: Stable. Lungs: Clear. Belly: Soft. No masses, no guarding. Pupils round, reactive. Vision clear. Oropharynx clear. Otherwise healthy appearing. PLAN: Flexeril, prednisone. Discharged, to follow up with her primary care for therapy. IMPRESSION: Acute low back strain; radiculopathy, left leg. Darius Soliman PA-C [id number] [facility] File#: [id number] END OF DOCUMENT / CHANGE LOG FOLLOWS Last Edited By Elec. Signed By Darius Soliman #[email or web address] Darius Soliman #[email or web address] on 01/04/2021 15:52 ET on 01/04/2021 15:52 ET Revision Number - 2 ^^^ Verified/Reviewed by 01/04/[address] PATIENT NAME: POLY MARTINEZ [facility] [place] MEDICAL REC #: [id number] [place] [address] [facility] REPORT STATCARE PHYSICIAN documented [facility] note Future Appointments Appointment Date:11/06/2021 01:00:00 PM Scheduled Provider:MARKIE DIAZ MD Location[facility] Appointment Type:[facility] Evaluation note* Diagnosis Hip strain, left, initial encounter- Primary Patellofemoral pain syndrome of left knee [facility] Diagnosis Anxiety state Anxiety state, unspecified [facility]* Diagnosis NO SHOW- Primary [facility] Diagnosis Sinobronchitis- Primary Unspecified sinusitis (chronic) [facility] Diagnosis Impingement syndrome of right shoulder- Primary Other affections of shoulder region, not elsewhere classified DDD (degenerative disc disease), cervical Degeneration of cervical intervertebral disc documented in this encounter [facility] course Narrative No data available for this section [facility] Hospital Discharge instructions No data available for this section [facility] Summary Purpose Family History No Family History Records FoundNo Family History Records FoundNo Family History Records FoundNo Family History Records FoundNo Family History Records FoundNo Family History Records Found Advance Directives No Advanced Directives Records FoundNo Advanced Directives Records FoundNo Advanced Directives Records FoundNo Advanced Directives Records FoundNo Advanced Directives Records FoundNo Advanced Directives Records Found Health Concerns Infection Onset Date Last Indicated Resolved Time COVID-19 Rule-Out 02/19/2022 02/19/2022 02/19/2022 10:05 AM EDT Infection Onset Date Last Indicated Resolved Time COVID-19 Rule-Out 06/04/2020 06/04/2020 06/07/2020 8:01 AM EST COVID-19 Rule-Out 02/19/2022 02/19/2022 02/19/2022 10:05 AM EDT Reason for Referral Specialty Diagnoses / Procedures Referred By Sandhya ellsworth Referred To Contact [facility] Diagnoses Impingement syndrome of right shoulder DDD (degenerative disc disease), cervical Procedures CONSULT TO PHYSICAL THERAPY PHYSICAL THERAPY EVALUATION HIGH COMPLEX 45 MINS Gunjan Fisher, [address] [place] [id number] [facility] [address] [address] Referral ID Status Reason Start Date Expiration Date Visits Requested Visits Authorized [id number] Pending Review Auto-Generat ed Referral 3 07/08/2024 1 1 Medications Administered Section Inactive Administered Medications - up to 3 most recent administrations Medication Order MAR Action Action Date Dose Rate Site dexAMETHasone sodium phosphate 2 mg injection (DECADRON) 2 mg, Injection - FOR ORTHO USE ONLY, ONCE, 1 dose, Starting on Sat07/09/23 at 1311, Until Sat07/09/23 at 1311 Given 07/09/2023 1:11 PM EST 2 mg Shoulder, Right lidocaine (PF) 20 mg/mL (2 %) 2 mL injection (XYLOCAINE) 2 mL, Injection - FOR ORTHO USE ONLY, ONCE, 1 dose, Starting on Sat07/09/23 at 1311, Until Sat07/09/23 at 1311 Given 07/09/2023 1:11 PM EST 2 mL Shoulder, Right triamcinolone acetonide 40 mg injection (KeNALog 40) 40 mg, Injection - FOR ORTHO USE ONLY, ONCE, 1 dose, Starting on Sat07/09/23 at 1311, Until Sat07/09/23 at 1311 Given 07/09/2023 1:11 PM EST 40 mg Shoulder, Right Additional Source Comments INFORMATION SOURCE (unrecogn ized section and content) DATE CREATED AUTHOR AUTHOR'S ORGANIZ ATION 09/08/2021 [facility] DATE CREATED AUTHOR AUTHOR'S ORGANIZ ATION 05/22/2022 [facility] DATE CREATED AUTHOR AUTHOR'S ORGANIZ ATION 06/05/2022 [facility] DATE CREATED AUTHOR AUTHOR'S ORGANIZ ATION 10/16/2022 [facility] DATE CREATED AUTHOR AUTHOR'S ORGANIZ ATION 07/11/2023 [facility] Source Comments (unrecognize d section and content) In the event this informatio n is protected by the Federal Confidentiality of Alcohol and Drug Abuse Patient Records regulations: The Federal rules restrict any use of the information to criminally investigate or prosecute any alcohol or drug abuse patient.[facility] the event this information is protected by the Federal Confidentiality of Alcohol and Drug Abuse Patient Records regulations: The Federal rules restrict any use of the information to criminally investigate or prosecute any alcohol or drug abuse patient.[facility] the event this information is protected by the Federal Confidentiality of Alcohol and Drug Abuse Patient Records regulations: The Federal rules restrict any use of the information to criminally investigate or prosecute any alcohol or drug abuse patient.[facility] the event this information is protected by the Federal Confidentiality of Alcohol and Drug Abuse Patient Records regulations: The Federal rules restrict any use of the information to criminally investigate or prosecute any alcohol or drug abuse patient.[facility] the event this information is protected by the Federal Confidentiality of Alcohol and Drug Abuse Patient Records regulations: The Federal rules restrict any use of the information to criminally investigate or prosecute any alcohol or drug abuse patient.[facility] the event this information is protected by the Federal Confidentiality of Alcohol and Drug Abuse Patient Records regulations: The Federal rules restrict any use of the information to criminally investigate or prosecute any alcohol or drug abuse patient.[facility] the event this information is protected by the Federal Confidentiality of Alcohol and Drug Abuse Patient Records regulations: The Federal rules restrict any use of the information to criminally investigate or prosecute any alcohol or drug abuse patient.[facility] the event this information is protected by the Federal Confidentiality of Alcohol and Drug Abuse Patient Records regulations: The Federal rules restrict any use of the information to criminally investigate or prosecute any alcohol or drug abuse patient.[facility] the event this information is protected by the Federal Confidentiality of Alcohol and Drug Abuse Patient Records regulations: The Federal rules restrict any use of the information to criminally investigate or prosecute any alcohol or drug abuse patient.[facility] the event this information is protected by the Federal Confidentiality of Alcohol and Drug Abuse Patient Records regulations: The Federal rules restrict any use of the information to criminally investigate or prosecute any alcohol or drug abuse patient.[facility] the event this information is protected by the Federal Confidentiality of Alcohol and Drug Abuse Patient Records regulations: The Federal rules restrict any use of the information to criminally investigate or prosecute any alcohol or drug abuse patient.[facility] the event this information is protected by the Federal Confidentiality of Alcohol and Drug Abuse Patient Records regulations: The Federal rules restrict any use of the information to criminally investigate or prosecute any alcohol or drug abuse patient.[facility] the event this information is protected by the Federal Confidentiality of Alcohol and Drug Abuse Patient Records regulations: The Federal rules restrict any use of the information to criminally investigate or prosecute any alcohol or drug abuse patient.[facility] the event this information is protected by the Federal Confidentiality of Alcohol and Drug Abuse Patient Records regulations: The Federal rules restrict any use of the information to criminally investigate or prosecute any alcohol or drug abuse patient.[facility] the event this information is protected by the Federal Confidentiality of Alcohol and Drug Abuse Patient Records regulations: The Federal rules restrict any use of the information to criminally investigate or prosecute any alcohol or drug abuse patient.[facility] the event this information is protected by the Federal Confidentiality of Alcohol and Drug Abuse Patient Records regulations: The Federal rules restrict any use of the information to criminally investigate or prosecute any alcohol or drug abuse patient.[facility] Reason for Visit (unrecogniz ed section and content) Reason Comments No Show Reason Comments Cough 2 weeks Chest Congestion Muscle Aches Reason Comments Appointment Reason Comments New Established Patient Pain FOR RECORDS PERTAINING TO PATIENTS WHO ARE OR HAVE BEEN ENROLLED IN A CHEMICAL DEPENDENCY/SUBSTANCEABUSE PROGRAM, SOME INFORMATION MAY BE OMITTED. This clinical summary was aggregated from multiple sources. Caution should be exercised in using it in the provision of clinical care. This summary normalizes information from multiple sources, and as a consequence, information in this document may materially change the coding, format and clinical context of patient data. In addition, data may be omitted in some cases. CLINICAL DECISIONS SHOULD BE BASED ON THE PRIMARY CLINICAL RECORDS. [facility] [employer] [facility]. provides no warranty or guarantee of the accuracy or completeness of information in this document.
== END | disposition home or self-care (01) ==
LOC: LABSPEC 15:40
PROVIDERS: Visit Provider Otolaryngology Otolaryngology/Facial Plastic Surgery
DX: J02.9 Acute pharyngitis, unspecified (principal)
CPT/HCPCS: 87070

== ENCOUNTER → 2023-12-25 | Outpatient (CLI) | payer MEDICAID, SELFPAY ==
--- NOTE | 2023-12-25 09:58 | RAD_ITS ---
STUDY: X-RAY - ESOPHAGUS (BARIUM SWALLOW) WITH FLUOROSCOPY REASON FOR EXAM: Female, 48 years old. DYSPHAGIA TECHNIQUE: 21 view(s) of the esophagus were obtained following swallowing of barium. FLUOROSCOPY TIME (if supplied): (36 seconds) minutes/seconds. 5.1 mGy. COMPARISON: None. FINDINGS: There is no demonstrated esophageal foreign body. There is no demonstrated stricture or mucosal abnormality. Normal gastroesophageal junction, without a demonstrated hiatal hernia. The patient ingested a 12 mm tablet of barium without any difficulty. Normal visualized aortic arch and descending thoracic aorta. Normal visualized pulmonary parenchyma. Normal visualized osseous structures of the thorax. RAD/Esophagus Dual Contrast IMPRESSION: Normal plain film x-ray examination (barium swallow) of the esophagus. Electronically Signed: Nadeem Vergara MD at 11:01 EDT ,
== END | disposition home or self-care (01) ==
LOC: RAD 09:49
PROVIDERS: Referring Provider Otolaryngology Otolaryngology/Facial Plastic Surgery; Visit Provider Otolaryngology Otolaryngology/Facial Plastic Surgery
DX: R13.14 Dysphagia, pharyngoesophageal phase (principal)
CPT/HCPCS: 74221